=== PATIENT | female | born 2005 | race Two or more races ===

== ENCOUNTER 2024-06-04 14:37 | Outpatient (AMB) | payer OTHER, SELFPAY ==
[2024-06-04 14:45] VITALS: BP 116/79; PULSE 110; RESP 18; TEMP 37; O2SAT 99; BMI 27.6
--- NOTE | 2024-06-04 14:45 | PD.GSCLVISIT ---
[facility] - [facility] 06/04/24 14:45 Height 1.6 m Height Method Stated Weight 70.789 kg Weight Measurement Method Standing Scale BMI 27.6 BP 116/79 Blood Pressure Source Automatic Cuff Blood Pressure Location Left Upper Arm Position Sitting Respiration 18 Pulse 110 H Pulse Source Monitor Temp 98.6 F Temp Source Temporal Artery Scan Pulse Oximetry (%) 99 Oxygen Delivery Method Room Air Med/Allergies Allergies & Medications Allergies SHRIMP Allergy (Uncoded 06/04/24 14:45) RASH Medication Reconciliation hydrocortisone acetate 25 mg rectal suppository (Anusol-HC) 25 mg AR QHS #24 ea 06/04/24 [Rx] MA Intake Visit Data Collection New Patient or Established: Established Patient (seen at [facility] within 3 years) Seen by Clinical Staff ONLY (RN/MA): No Reason for Visit:: REQ RX REFILLS Pain Present Currently: No School Psychological Examiner Required: No PCP or OBGYN visit in last 3 months: Yes Hx Now: No Do You Feel Safe at Home: Yes Authorities Contacted: N/A Smoking Status Smoking Status: Never smoker Immunization / Flu Flu Vaccine in the Last 12 Months: Yes Flu Vaccine Exclusion Criteria: Already Received Past Medical History Social History SMOKING STATUS: Smoking status: Never smoker SECOND HAND EXPOSURE: second hand exposure: No ALCOHOL: Alcohol Intake: Never HOUSING: Housing: House LIVES WITH: Lives With: Family HPI HPI Narrative 18F here for follow up of internal hemorrhoids. Pt reports for the last 3 months she has had intermittent bleeding, but denies any change in stool caliber, anorexia and unintentional weight loss. She has 2-3 BMs per day which are soft without any straining, is continuing to drink plenty of water and take fiber ROS Review of Systems Systems Reviewed: All systems reviewed, normal except as documented Objective/Exam General General Appearance: alert, cooperative and well groomed Resp Respiratory exam: Absent respiratory distress Assessment & Plan Diagnosis / Problem List (1) Internal hemorrhoid, bleeding: Status: Acute Assessment & Plan: 18F seen last year for bleeding internal hemorrhoids which resolved with anusol suppositories, presenting with recurrence of symptoms. I encouraged her to continue her healthy bowel regimen and will again prescribe anusol, will plan on follow up in 6 weeks Office Procedures GNS Level of Care Nursing/Assessment Patient Status: Established Patient Nursing Assessment/Reassesment: Medication Reconciliation, Update PMH in EMR and Vital Signs Coordination of Care: Complex Care and Chronic Disease 1-5, Education Complex Pt/Fam, Consent,records obtained, informed consent, Results/Orders obtained and Staff clarify orders Established Patient Charge Established Patient Point Assignment: 95 Established Patient Point Charge: EP Level 3 (80-115) Patient Portal Questionaires Social History Living Situation History Housing: House Tobacco History Smoking Status: Never smoker Second Hand Smoke Exposure: No Alcohol History Alcohol Intake: Never Domestic Abuse History Do You Feel Safe at Home: Yes Review of Systems Report any current symptoms Only answer those that you have currently: Past Medical History Past Medical History Have you ever been diagnosed with any of the following:
== END 2024-06-04 14:56 | disposition home or self-care (01) ==
LOC: HODSRG 14:37
PROVIDERS: PCP Family Medicine; Referring Provider Family Medicine; Supervising Provider Surgery; Visit Provider Surgery
DX: K64.8 Other hemorrhoids (principal)
CPT/HCPCS: 99213; G0463

== ENCOUNTER 2024-07-16 10:19 | Outpatient (AMB) | payer OTHER, SELFPAY ==
[2024-07-16 10:31] VITALS: BP 105/73; PULSE 94; RESP 16; TEMP 36; O2SAT 99; BMI 26.6
--- NOTE | 2024-07-16 10:31 | GSCOFFNT_ITS ---
Vital Signs - [facility] 07/16/24 10:31 Height 1.6 m Height Method Stated Weight 68.096 kg Weight Measurement Method Standing Scale BMI 26.6 BP 105/73 Blood Pressure Source Automatic Cuff Blood Pressure Location Right Upper Arm Position Sitting Respiration 16 Pulse 94 Pulse Source Monitor Temp 96.8 F Temp Source Temporal Artery Scan Pulse Oximetry (%) 99 Oxygen Delivery Method Room Air Med/Allergies Allergies & Medications Allergies SHRIMP Allergy (Uncoded 06/04/24 14:45) RASH MA Intake Visit Data Collection New Patient or Established: Established Patient (seen at [facility] within 3 years) Seen by Clinical Staff ONLY (RN/MA): No Reason for Visit:: 6 WEEK F/U Pain Present Currently: No Quality Lead Required: No PCP or OBGYN visit in last 3 months: Yes Date of Last Menstrual Period: 07/12/24 Smoking Status Smoking Status: Never smoker Immunization / Flu Flu Vaccine in the Last 12 Months: Yes Flu Vaccine Exclusion Criteria: Already Received Past Medical History Social History SMOKING STATUS: Smoking status: Never smoker SECOND HAND EXPOSURE: second hand exposure: No ALCOHOL: Alcohol Intake: Never HOUSING: Housing: House LIVES WITH: Lives With: Family HPI HPI Narrative 18F here for follow up of internal hemorrhoids. Pt reports she still has intermittent bleeding, and she now has lower abdominal pain which tends to improve after a BM. She denies any change in stool caliber, is still having 2-3 BMs per day which do not contain blood but she has noted some degree of unintentional weight loss. Pt states her grandmother had colon CA and her father has either IBD or IBS ROS Review of Systems Systems Reviewed: All systems reviewed, normal except as documented Objective/Exam General General Appearance: alert, cooperative and well groomed Resp Respiratory exam: Absent respiratory distress Assessment & Plan Diagnosis / Problem List (1) Abdominal pain: Status: Acute Assessment & Plan: 18F who initially presented with symptomatic hemorrhoids, who is reporting lower abdominal pain and unintentional weight loss. I explained that given the persistence of these symptoms it would be reasonable to investigate with colonoscopy, to evaluate for IBD or less likely malignancy. I explained risks of procedure including the potential for perforation and/or the need to abort prematurely. Pt expressed understanding and agrees to proceed Office Procedures GNS Level of Care Nursing/Assessment Patient Status: Established Patient Nursing Assessment/Reassesment: Medication Reconciliation, Update PMH in EMR and Vital Signs Coordination of Care: Complex Care and Chronic Disease 1-5, Education Complex Pt/Fam, 1 Ins Authorization and Staff clarify orders Established Patient Charge Established Patient Point Assignment: 100 Established Patient Point Charge: EP Level 3 (80-115) Patient Portal Questionaires Social History Living Situation History Housing: House Tobacco History Smoking Status: Never smoker Second Hand Smoke Exposure: No Alcohol History Alcohol Intake: Never Review of Systems Report any current symptoms Only answer those that you have currently: Past Medical History Past Medical History Have you ever been diagnosed with any of the following:
== END 2024-07-16 10:50 | disposition home or self-care (01) ==
LOC: HODSRG 10:19
PROVIDERS: PCP Family Medicine; Referring Provider Family Medicine; Supervising Provider Surgery; Visit Provider Surgery
DX: R10.30 Lower abdominal pain, unspecified (principal); R63.4 Abnormal weight loss
CPT/HCPCS: 99213; G0463

== ENCOUNTER 2024-07-19 07:50 | Day surgery (SDC) | payer OTHER, SELFPAY ==
[2024-07-17 13:26] LABS: HCG Qualitative,Urine Negative
[2024-07-19] VITALS (15 sets, daily range): BP systolic 98–130; BP diastolic 71–84; PULSE 82–128; RESP 13–26; TEMP 36.3–36.7; O2SAT 97–100; BMI 26.4
[2024-07-19] MEDS: DiphenhydrAMINE INJ 50 MG/ML VIAL 25 MG IV (09:10)
[2024-07-19] MEDS: fentaNYL CIT INJ 50 mCg/ML AMP 2ML (ASD USE ONLY) IV (09:18)
[2024-07-19] MEDS: MIDAZOLAM INJ 1 MG/ML VIAL 2 ML (ASD USE ONLY) 2 MG IV ×2 (09:20→09:38)
[2024-07-19] MEDS: ONDANSETRON INJ 2 MG/ML INJ 2 ML 4 MG IV (09:24)
--- NOTE | 2024-07-19 09:55 | SUR.PHASEII ---
PATIENT INTO RECOVERY WITH NO ACUTE DISTRESS NOTED, V/S STABLE, NO COMPLAINTS OF PAIN OR NAUSEA AT THIS TIME, PATIENT REPOSITIONED SELF FOR COMFORT. REPORT RECEIVED FROM DICKSON HO.
--- NOTE | 2024-07-19 10:15 | SUR.PHASEII ---
PATIENT DRINKING 7UP WITH NO DIFFICULTIES. PATIENT DENIES PAIN AND NAUSEA AT THIS TIME.
== END 2024-07-19 10:30 | disposition home or self-care (01) ==
PROVIDERS: PCP Family Medicine; Referring Provider Surgery; Visit Provider Surgery
PROC: 0DBE8ZX Excision of Large Intestine, Via Natural or Artificial Opening Endoscopic, Diagnostic (ICD-10-PCS; CPT 45380; principal; 2024-07-19 10:30)
DX: K51.418 Inflammatory polyps of colon with other complication (principal); K62.89 Other specified diseases of anus and rectum; K63.89 Other specified diseases of intestine; K52.89 Other specified noninfective gastroenteritis and colitis; Z87.19 Personal history of other diseases of the digestive system
CPT/HCPCS: 45385; 45380; 81025; A4649; J1200; J2250; J2405; J3010

== ENCOUNTER 2024-08-02 14:38 | Outpatient (AMB) | payer OTHER, SELFPAY ==
[2024-08-02 14:43] VITALS: BP 113/77; PULSE 111; RESP 18; TEMP 35.3; O2SAT 99; BMI 26.9
--- NOTE | 2024-08-02 14:43 | PD.GSCLVISIT ---
Vital Signs - [facility] 08/02/24 14:43 Height 1.6 m Height Method Stated Weight 68.946 kg Weight Measurement Method Standing Scale BMI 26.9 BP 113/77 Blood Pressure Source Automatic Cuff Blood Pressure Location Left Upper Arm Position Sitting Respiration 18 Pulse 111 H Pulse Source Monitor Temp 95.6 F L Temp Source Temporal Artery Scan Pulse Oximetry (%) 99 Oxygen Delivery Method Room Air Med/Allergies Allergies & Medications Allergies SHRIMP Allergy (Uncoded 08/02/24 14:44) RASH Medication Reconciliation No Known Home Medications 07/19/24 [History Confirmed 08/02/24] MA Intake Visit Data Collection New Patient or Established: Established Patient (seen at [facility] [place] within 3 years) Seen by Clinical Staff ONLY (RN/MA): No Reason for Visit:: COLON F/U Pain Present Currently: No Pain scale:: 0 Mastic Sprayer Required: No PCP or OBGYN visit in last 3 months: Yes Hx Now: No Do You Feel Safe at Home: Yes Authorities Contacted: N/A Smoking Status Smoking Status: Never smoker Immunization / Flu Flu Vaccine in the Last 12 Months: Yes Flu Vaccine Exclusion Criteria: Already Received Past Medical History Past Medical History NEUROLOGIC: Negative Neurological Disorders or Seizures CARDIAC: Negative Cardiac Disorders or Congestive Heart Failure RESPIRATORY: Negative Chronic Obstructive Pulmonary Disease (COPD) GASTROINTESTINAL: Positive Gastrointestinal Disorders (ABDOMINAL PAIN, CRAMPING) GENITOURINARY: Negative Genitourinary Disorders or Renal Disease REPRODUCTIVE: Negative Previous Pregnancies ENDOCRINE: Negative Endocrine Disorders, Diabetes Mellitus Type 1 or Diabetes Mellitus Type 2 HEMATOLOGIC: Negative Blood Disorders OTHER HISTORY: Negative Falls, Blood Transfusions, Blood Transfusion Reaction, Anesthesia Reactions, Chicken Pox, Measles, Mumps or Cancer Social History SMOKING STATUS: Smoking status: Never smoker SECOND HAND EXPOSURE: second hand exposure: No ALCOHOL: Alcohol Intake: Never HOUSING: Housing: House LIVES WITH: Lives With: Family HPI HPI Narrative 18F here to discuss colonoscopy which was done for rectal bleeding, abdominal pain and unintentional weight loss. Today pt reports feeling well overall, her symptoms are currently under control ROS Constitutional Constitutional: Reports system reviewed and no additional complaints, except as documented Objective/Exam General General Appearance: alert, cooperative and well groomed Resp Respiratory exam: Absent respiratory distress Results Pathology from colonoscopy: inflammatory polyps, consistent with IBD Assessment & Plan Diagnosis / Problem List (1) Ulcerative colitis: Status: Acute Assessment & Plan: 18F with rectal bleeding, abdominal pain and colonoscopy findings consistent with IBD. Given the location of erythematous mucosa I explained that ulcerative colitis is the more likely diagnosis. I will refer to GI and also explained that she should have her next colonoscopy in 8 years. All questions were answered and pt expressed understanding Plan: F/u in 6 weeks Orders: Referrals Gastroenterology K51.90 - Ulcerative colitis, unspecified, without complications Office Procedures GNS Level of Care Nursing/Assessment Patient Status: Established Patient Nursing Assessment/Reassesment: Medication Reconciliation, Update PMH in EMR and Vital Signs Coordination of Care: Complex Care and Chronic Disease 1-5, Consent,records obtained, informed consent, Education Simp Pt/Fam, Results/Orders obtained and Staff clarify orders Established Patient Charge Established Patient Point Assignment: 90 Established Patient Point Charge: EP Level 3 (80-115) Patient Portal Questionaires Social History Living Situation History Housing: House Tobacco History Smoking Status: Never smoker Second Hand Smoke Exposure: No Alcohol History Alcohol Intake: Never Domestic Abuse History Do You Feel Safe at Home: Yes Review of Systems Report any current symptoms Only answer those that you have currently: Past Medical History Past Medical History Have you ever been diagnosed with any of the following: Neurological Problems Seizures: No Cardiology Problems Congestive Heart Failure: No Respiratory Problems Chronic Obstructive Pulmonary Disease (COPD): No Genital/Urinary Problems Renal Disease: No Reproductive Problems Previous Pregnancies: No Endocrine Problems Diabetes Mellitus Type 1: No Diabetes Mellitus Type 2: No Other Problems Falls: No Blood Transfusions: No Blood Transfusion Reaction: No Anesthesia Reactions: No Chicken Pox: No Measles: No Mumps: No Cancer: No
== END 2024-08-02 15:16 | disposition home or self-care (01) ==
LOC: HODSRG 14:38
PROVIDERS: PCP Family Medicine; Referring Provider Family Medicine; Supervising Provider Surgery; Visit Provider Surgery
DX: K51.90 Ulcerative colitis, unspecified, without complications (principal)
CPT/HCPCS: 99213; G0463

== ENCOUNTER → 2024-09-11 | Outpatient (CLI) | payer OTHER, SELFPAY ==
[2024-09-11 17:42] LABS: Basophils % (Auto) 0 % (0-2.5); Eosinophils # (Auto) 0.3 Thou/mm3 (0.0-0.5); Eosinophils % (Auto) 5 % (0-10); Hematocrit 25.9 % (36.0-46.0); Immature Granulocytes % (Auto) 0 % (0-0); Immature Granulocytes Auto 0.01 Thou/mm3 (0.00-0.00); Lymphocytes # (Auto) 3.6 Thou/mm3 (1.0-5.0); Lymphocytes % (Auto) 55 % (10-50); Mean Corpuscular Hemoglobin 19.5 pg (25.0-35.0); Mean Corpuscular Volume 67 fL (80-100); Monocytes # (Auto) 0.6 Thou/mm3 (0.0-0.8); Monocytes % (Auto) 10 % (0-12); Neutrophils # (Auto) 1.9 Thou/mm3 (1.8-7.7); Neutrophils % (Auto) 30 % (37-80); Nucleated Red Blood Cell % 0 /100 WBC (0); Platelet Count 487 Thou/mm3 (140-440); RDW Standard Deviation 38.3 fL (36.4-46.3); Red Blood Count 3.85 Miln/mm3 (4.00-5.20); White Blood Count 6.5 Thou/mm3 (4.5-11.0)
[2024-09-11 18:02] LABS: Hemoglobin 7.5 g/dL (12.0-16.0)
[2024-09-11 18:31] LABS: Path Review Blood Smear Sent to Pathologist
[2024-09-11 19:06] LABS: Alanine Aminotransferase < 7 U/L (10-49); Albumin/Globulin Ratio 1.4 (1.2-2.2); Alkaline Phosphatase 63 U/L (46-116); Anion Gap 8 (7-16); Aspartate Amino Transferase < 10 U/L (0-34); BUN/Creatinine Ratio 13 Ratio (12-20); Bilirubin,Total 0.2 mg/dL (0.3-1.2); Blood Urea Nitrogen 8 mg/dL (9-23); Calcium 9.1 mg/dL (8.3-10.6); Calcium (Corrected) 9.1 mg/dL (8.5-10.1); Carbon Dioxide 26.9 mMol/L (20.0-31.0); Chloride 104 mMol/L (98-107); Creatinine (Component) 0.6 mg/dL (0.6-1.3); Globulin 2.8 gm/dL (2.3-3.5); Glucose 85 mg/dL (74-106); Osmolality,Calculated 274 (275-295); Potassium 3.9 mMol/L (3.4-5.1); Sodium 139 mMol/L (136-145); Total Protein 6.8 gm/dL (5.7-8.2); eGFR > 60 See Note
[2024-09-20 07:01] LABS: ANCA Screen POSITIVE (NEGATIVE); Atypical P-ANCA Titer 1:40 titer (<1:20); Myeloperoxidase Ab <1.0 AI (<1.0); Proteinase-3 Ab <1.0 AI (<1.0); hs-CRP* 2.7 mg/L
== END | disposition home or self-care (01) ==
PROVIDERS: PCP Family Medicine; Referring Provider Specialist; Visit Provider Specialist
DX: R19.7 Diarrhea, unspecified (principal); R10.32 Left lower quadrant pain; R10.31 Right lower quadrant pain; R53.83 Other fatigue
CPT/HCPCS: 36415; 80053; 85025; 86021; 86036; 86141

== ENCOUNTER → 2024-10-02 | Outpatient (CLI) | payer OTHER, SELFPAY ==
[2024-10-02 13:20] LABS: Basophils % (Auto) 0 % (0-2.5); Eosinophils # (Auto) 0.3 Thou/mm3 (0.0-0.5); Eosinophils % (Auto) 4 % (0-10); Hematocrit 31.2 % (36.0-46.0); Hemoglobin 9.1 g/dL (12.0-16.0); Immature Granulocytes % (Auto) 1 % (0-0); Immature Granulocytes Auto 0.08 Thou/mm3 (0.00-0.00); Lymphocytes # (Auto) 2.2 Thou/mm3 (1.0-4.8); Lymphocytes % (Auto) 29 % (10-50); Mean Corpuscular HGB Conc 29.2 g/dl (31.0-37.0); Mean Corpuscular Hemoglobin 21.1 pg (25.0-35.0); Mean Corpuscular Volume 72 fL (80-100); Monocytes # (Auto) 0.7 Thou/mm3 (0.0-0.8); Monocytes % (Auto) 9 % (0-12); Neutrophils # (Auto) 4.3 Thou/mm3 (1.8-7.7); Neutrophils % (Auto) 57 % (37-80); Nucleated Red Blood Cell % 0 /100 WBC (0); Platelet Count 374 Thou/mm3 (140-440); Red Blood Count 4.32 Miln/mm3 (4.00-5.20); White Blood Count 7.6 Thou/mm3 (4.5-11.0)
[2024-10-02 13:39] LABS: Ferritin 24 ng/mL (7.3-270.7); Iron 236 mcg/dL (50-170)
== END | disposition home or self-care (01) ==
LOC: COPL 12:20
PROVIDERS: PCP Physician Assistant; Referring Provider Physician Assistant; Visit Provider Physician Assistant
DX: D50.9 Iron deficiency anemia, unspecified (principal)
CPT/HCPCS: 36415; 82728; 83540; 85025

== ENCOUNTER → 2024-11-01 | Outpatient (CLI) | payer OTHER, SELFPAY ==
[2024-11-01 17:28] LABS: Basophils % (Auto) 1 % (0-2.5); Eosinophils # (Auto) 0.4 Thou/mm3 (0.0-0.5); Eosinophils % (Auto) 4 % (0-10); Hematocrit 35.9 % (36.0-46.0); Hemoglobin 11.4 g/dL (12.0-16.0); Immature Granulocytes % (Auto) 0 % (0-0); Immature Granulocytes Auto 0.02 Thou/mm3 (0.00-0.00); Lymphocytes # (Auto) 3.5 Thou/mm3 (1.0-4.8); Lymphocytes % (Auto) 41 % (10-50); Mean Corpuscular HGB Conc 31.8 g/dl (31.0-37.0); Mean Corpuscular Hemoglobin 24.5 pg (25.0-35.0); Mean Corpuscular Volume 77 fL (80-100); Monocytes # (Auto) 0.8 Thou/mm3 (0.0-0.8); Monocytes % (Auto) 9 % (0-12); Neutrophils # (Auto) 3.9 Thou/mm3 (1.8-7.7); Neutrophils % (Auto) 45 % (37-80); Nucleated Red Blood Cell % 0 /100 WBC (0); Platelet Count 359 Thou/mm3 (140-440); Red Blood Count 4.66 Miln/mm3 (4.00-5.20); White Blood Count 8.7 Thou/mm3 (4.5-11.0)
[2024-11-01 17:56] LABS: Ferritin 11 ng/mL (7.3-270.7); Iron 138 mcg/dL (50-170)
== END | disposition home or self-care (01) ==
LOC: COPL 16:32
PROVIDERS: PCP Physician Assistant; Referring Provider Physician Assistant; Visit Provider Physician Assistant
DX: D50.9 Iron deficiency anemia, unspecified (principal); N92.0 Excessive and frequent menstruation with regular cycle
CPT/HCPCS: 36415; 82728; 83540; 85025

== ENCOUNTER → 2025-01-04 | Outpatient (CLI) | payer OTHER, SELFPAY ==
[2025-01-04 14:18] LABS: Basophils % (Auto) 0 % (0-2.5); Eosinophils # (Auto) 0.3 Thou/mm3 (0.0-0.5); Eosinophils % (Auto) 3 % (0-10); Hematocrit 37.9 % (36.0-46.0); Hemoglobin 12.8 g/dL (12.0-16.0); Immature Granulocytes % (Auto) 0 % (0-0); Immature Granulocytes Auto 0.02 Thou/mm3 (0.00-0.00); Lymphocytes % (Auto) 35 % (10-50); Mean Corpuscular HGB Conc 33.8 g/dl (31.0-37.0); Mean Corpuscular Hemoglobin 28.2 pg (25.0-35.0); Mean Corpuscular Volume 84 fL (80-100); Monocytes # (Auto) 0.6 Thou/mm3 (0.0-0.8); Monocytes % (Auto) 7 % (0-12); Neutrophils # (Auto) 4.6 Thou/mm3 (1.8-7.7); Neutrophils % (Auto) 54 % (37-80); Nucleated Red Blood Cell % 0 /100 WBC (0); Platelet Count 315 Thou/mm3 (140-440); RDW Standard Deviation 42.5 fL (36.4-46.3); Red Blood Count 4.54 Miln/mm3 (4.00-5.20); White Blood Count 8.5 Thou/mm3 (4.5-11.0)
[2025-01-04 14:31] LABS: Ferritin 18 ng/mL (7.3-270.7); Iron 114 mcg/dL (50-170)
== END | disposition home or self-care (01) ==
LOC: COPL 13:21
PROVIDERS: PCP Family Medicine; Referring Provider Physician Assistant; Visit Provider Physician Assistant
DX: D50.9 Iron deficiency anemia, unspecified (principal)
CPT/HCPCS: 36415; 82728; 83540; 85025